=== PATIENT | female | born 1990 | race Two or more races ===

== ENCOUNTER → 2017-12-24 | Outpatient (CLI) | payer OTHER ==
--- NOTE | 2017-12-24 12:42 | RAD ---
US PELVIS W/TV Clinical Indication: Breakthrough bleeding while on control. Fullness on right adnexa. Comparison: None. TECHNIQUE: Real-time ultrasound imaging of the pelvis using transabdominal and transvaginal window is performed. Findings: Uterus and ovaries are visualized transabdominally. Urinary bladder is unremarkable. Transvaginally the uterus measures 7.2 x 3 x 4.1 cm. No focal abnormality. The endometrial stripe is normal measuring 5 mm. Mild cul-de-sac free fluid, likely physiologic. The left ovary measures 2.7 x 0.9 x 1.8 cm. The right ovary measures 2.5 x 2.3 x 1.7 cm. There is a right paraovarian cyst measuring up to 1.3 cm. Normal blood flow in the ovaries. IMPRESSION: 1. Endometrial stripe is normal. 2. Small right paraovarian cyst. 3. Mild cul-de-sac free fluid, likely physiologic. Electronically signed by: Ky Ziegler MD (12/24/2017 12:39 PM) [id number]
== END | disposition home or self-care (01) ==
LOC: US 09:55
PROVIDERS: ATTEND Obstetrics & Gynecology
DX: N83.291 Other ovarian cyst, right side (principal)
CPT/HCPCS: 76830; 76856

== ENCOUNTER → 2019-12-30 | Outpatient (CLI) | payer OTHER | LOC: LAB 15:21 | PROVIDERS: ATTEND Internal Medicine Cardiovascular Disease | DX: Z20.828 Contact with and (suspected) exposure to other viral communicable diseases (principal) | CPT/HCPCS: 36415; U0003 ==

== ENCOUNTER → 2020-01-06 | Outpatient (CLI) | payer OTHER | END | disposition home or self-care (01) | LOC: LAB 01-05 14:20 | PROVIDERS: ATTEND Internal Medicine Cardiovascular Disease | DX: Z20.828 Contact with and (suspected) exposure to other viral communicable diseases (principal) | CPT/HCPCS: C9803; U0003; 36415 ==

== ENCOUNTER → 2020-01-14 | Outpatient (CLI) | payer OTHER | END | disposition home or self-care (01) | LOC: LAB 10:11 | PROVIDERS: ATTEND Internal Medicine Cardiovascular Disease | DX: Z20.828 Contact with and (suspected) exposure to other viral communicable diseases (principal) | CPT/HCPCS: C9803; U0003; 36415 ==

== ENCOUNTER → 2021-02-12 | Outpatient (CLI) | payer OTHER | LOC: LAB 07:51 | PROVIDERS: ATTEND Internal Medicine Cardiovascular Disease | DX: Z20.822 Contact with and (suspected) exposure to COVID-19 (principal) | CPT/HCPCS: U0003 ==

== ENCOUNTER → 2021-02-16 | Outpatient (CLI) | payer OTHER | LOC: LAB 13:49 | PROVIDERS: ATTEND Internal Medicine Cardiovascular Disease | DX: U07.1 COVID-19 (principal) | CPT/HCPCS: U0003 ==